=== PATIENT | female | born 1945 | race Caucasian/White ===

== ENCOUNTER 2022-12-16 10:43 | Outpatient (CLI) | payer MEDICARE ==
[~2022-12-16 10:43] MED LIST: ACET-890 PO; APIX5TAB3 PO; ATOR20TA66 PO; CHOL500044 PO; FERR-39 PO; FURO40TA4 PO; METO-539 PO; POTA-84 PO; RAMI10CA34 PO
== END 2022-12-16 23:59 | disposition home or self-care (01) ==
LOC: CARD DIAG 10:43
PROVIDERS: ATTEND Internal Medicine Cardiovascular Disease
DX: I08.1 Rheumatic disorders of both mitral and tricuspid valves (principal); R06.02 Shortness of breath; I50.22 Chronic systolic (congestive) heart failure
CPT/HCPCS: 93306